=== PATIENT | female | born 1995 | race Caucasian/White ===

== ENCOUNTER 2021-05-22 20:44 | Emergency (ER) | payer OTHER, SELFPAY ==
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
[2021-05-22 20:56] VITALS: BP 124/76; PULSE 98; RESP 20; TEMP 37.1; O2SAT 100
[2021-05-23 00:05] VITALS: BP 112/74; PULSE 80; RESP 16; O2SAT 97
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
[2021-05-23] MEDS: IBUPROFEN 600 MG TABLET PO (00:40)
[2021-05-23] MEDS: HYDROcodone/acetaminophen (*CRX) 5-325 MG TABLET 1 TAB PO (00:41)
== END 2021-05-23 00:49 | disposition home or self-care (01) ==
PROVIDERS: Emergency Provider Emergency Medicine
DX: S60.211A Contusion of right wrist, initial encounter (principal); V43.52XA Car driver injured in collision with other type car in traffic accident, initial encounter
CPT/HCPCS: 73110; 99283; A9270